=== PATIENT | male | born 1955 | race African-American/Black ===

== ENCOUNTER 2017-04-29 11:31 | Emergency (ER) | payer OTHER ==
[~2017-04-29] VITALS: Ht 188 cm; Wt 70.9 kg
[~2017-04-29 11:31] MED LIST: AMOXICILLIN 8751 TAB PO; ATENOLOL100 MG PO; ATIVAN 1MG T1 MG/TAB PO; CLINDAMYCIN HC300 MG PO; CYCLOBENZAPRINE10 MG PO; DESYREL 100MG100 MG PO; DOXYCYCLINE 10100 MG PO; DYAZIDE 25 MG-31 CAP PO; FLEXERIL10 MG PO; KAPIDEX; LISINOPRIL/HCTZ1 TA1 PO; LOPRESSOR 225 MG/TAB PO; LORTAB 5/500 501 TAB PO; NO HOME MEDICATIONS; NORCO 325 MG-51 TAB; NORCO 325 MG-51 TAB PO; PAIN PILL; PERCOCET 325 MG1 TA2 PO; PRILOSEC10 MG PO; ROXICODONE15 MG PO; TOPROL XL 25MG25 MG PO; TRAZODO50 MG PO; TUSS PO
[2017-04-29 11:40] VITALS: BP 127/87; TEMP 98
[2017-04-29] MEDS ORDERED: FLEXERIL 1010 MG/TAB PO (12:43)
[2017-04-29] MEDS ORDERED: NORCO 325 MG-51 TAB PO (12:43)
[2017-04-29 13:06] VITALS: PULSE 95
== END 2017-04-29 13:07 | disposition home or self-care (01) ==
LOC: COL.ER 11:31
DX: M54.31 Sciatica, right side (principal); M46.1 Sacroiliitis, not elsewhere classified; M62.830 Muscle spasm of back; F17.200 Nicotine dependence, unspecified, uncomplicated
CPT/HCPCS: J2360

== ENCOUNTER 2017-11-10 06:56 | Inpatient (IN) | payer OTHER ==
[2017-11-10] VITALS (9 sets, daily range): BP systolic 113–156; BP diastolic 83–114; PULSE 106–116; TEMP 97.3–98.7
[~2017-11-10] VITALS: Ht 188 cm; Wt 62.4 kg
[~2017-11-10 06:56] MED LIST changes: +FLEXERIL 1010 MG/TAB PO
[2017-11-10] MEDS ORDERED: TOPROL XL 25MG25 MG PO (07:09)
[2017-11-10 07:58] LABS: BASO % 0.6 % (0.0-2.0); EOS % 0.3 % (0-4.0); GRAN # 4.1 (1.4-6.5); GRAN % 62.2 % (42.2-75.2); HEMOGLOBIN 13.7 g/dl (13.5-18.0); LYMPH # 1.4 (1.2-3.4); LYMPH % 21.4 % (20.0-51.0); MEAN CELL VOLUME 97 fl (80.0-100.0); MEAN CORPUSCULAR HEMOGLOBIN 32 pg (27.0-31.0); MEAN CORPUSCULAR HGB CONC 33 g/dl (33.0-37.0); MEAN PLATELET VOLUME 8.9 fl (7.4-10.4); MONO % 14.9 % (1.7-9.3); PLATELET COUNT 200 K/mm3 (130-400); RED BLOOD COUNT 4.32 M/mm3 (4.20-5.60); REDCELL DISTRIBUTION WIDTH-CV 13.7 % (11.5-14.5)
[2017-11-10 08:04] LABS: INR 1.2 (0.8-3.0); PROTHROMBIN TIME 14.3 SECONDS (9.7-12.8)
[2017-11-10 08:23] LABS: ALBUMIN 3.5 gm/dL (3.5-5.0); BILIRUBIN,TOTAL 1.4 mg/dL (0.0-1.0); C-REACTIVE PROTEIN 0.7 mg/dL (0.0-0.9); CREATININE, serum 0.81 mg/dL (0.66-1.25); POTASSIUM 4.2 mmol/L (3.4-5.0); TOTAL PROTEIN 7.3 gm/dL (6.4-8.2)
[2017-11-10 08:35] LABS: TROPONIN-I 0.068 ng/mL (0.000-0.034)
[2017-11-10] MEDS ORDERED: MOTRIN 600600 MG/TAB PO (11:09)
[2017-11-10 15:04] LABS: TRICYCLIC ANTIDEPRESS URINE NEGATIVE
[2017-11-10 17:01] LABS: CHOLESTEROL RISK RATIO 3.4
[2017-11-11] VITALS (11 sets, daily range): BP systolic 95–130; BP diastolic 55–97; PULSE 62–124; TEMP 97.5–98.8
[2017-11-11 06:50] LABS: BASO # 0.1 (0.0-0.2); BASO % 0.7 % (0.0-2.0); EOS # 0.1 (0.0-0.7); GRAN % 56.2 % (42.2-75.2); HEMATOCRIT 43.2 % (42.0-52.0); HEMOGLOBIN 14.3 g/dl (13.5-18.0); LYMPH # 1.8 (1.2-3.4); LYMPH % 25.1 % (20.0-51.0); MEAN CELL VOLUME 96 fl (80.0-100.0); MEAN CORPUSCULAR HEMOGLOBIN 32 pg (27.0-31.0); MEAN CORPUSCULAR HGB CONC 33 g/dl (33.0-37.0); MEAN PLATELET VOLUME 9.3 fl (7.4-10.4); MONO # 1.1 (0.1-0.6); MONO % 15.7 % (1.7-9.3); PLATELET COUNT 215 K/mm3 (130-400); RED BLOOD COUNT 4.49 M/mm3 (4.20-5.60); REDCELL DISTRIBUTION WIDTH-CV 13.5 % (11.5-14.5)
[2017-11-11 07:09] LABS: ALBUMIN 3.1 gm/dL (3.5-5.0); CALCIUM 9.1 mg/dL (8.4-10.2); CREATININE, serum 0.92 mg/dL (0.66-1.25); POTASSIUM 3.6 mmol/L (3.4-5.0); TOTAL PROTEIN 6.7 gm/dL (6.4-8.2)
[2017-11-12] VITALS (13 sets, daily range): BP systolic 96–147; BP diastolic 61–90; PULSE 85–110; TEMP 97.7–98.8
[2017-11-12 07:02] LABS: BILIRUBIN,TOTAL 0.7 mg/dL (0.0-1.0); CALCIUM 8.9 mg/dL (8.4-10.2); CREATININE, serum 0.93 mg/dL (0.66-1.25); POTASSIUM 3.4 mmol/L (3.4-5.0); TOTAL PROTEIN 6.6 gm/dL (6.4-8.2)
[2017-11-13] VITALS (7 sets, daily range): BP systolic 109–125; BP diastolic 72–84; PULSE 82–97; TEMP 97.7–98.5
[2017-11-13] MEDS ORDERED: COREG 3.123.125 MG/T PO (10:58)
[2017-11-13] MEDS ORDERED: ASPIRIN 81M81 MG/TA2 PO (10:58)
[2017-11-13] MEDS ORDERED: ZESTRIL 5MG5 MG PO (10:58)
[2017-11-13] MEDS ORDERED: FOLIC ACID 11 MG/TA1 PO (11:01)
[2017-11-13] MEDS ORDERED: THIAMINE 1100 MG/TAB PO (11:01)
[2017-11-13] MEDS ORDERED: MULTI VITAMINS1 TAB PO (11:01)
[2017-11-13] MEDS ORDERED: LASIX 20MG TABL20 MG PO (11:22)
== END 2017-11-13 23:50 | disposition home or self-care (01) | DRG 280 ==
LOC: COL.ER 06:56 → SURG 08:16 → PEDS 11-12 09:20 → SURG 11-12 09:20
PROVIDERS: Family Medicine; Physician Assistant
DX: I11.0 Hypertensive heart disease with heart failure (principal); J96.01 Acute respiratory failure with hypoxia; I21.A1 Myocardial infarction type 2; I50.21 Acute systolic (congestive) heart failure; F17.210 Nicotine dependence, cigarettes, uncomplicated; F10.10 Alcohol abuse, uncomplicated; F11.10 Opioid abuse, uncomplicated; F15.10 Other stimulant abuse, uncomplicated; Z23 Encounter for immunization; M54.42 Lumbago with sciatica, left side; R16.0 Hepatomegaly, not elsewhere classified; F32.9 Major depressive disorder, single episode, unspecified
CPT/HCPCS: 99232-AI; 99233-AI; 99239; J1650; J1940; J2270; J2405; J3411; J7050; Q9967

== ENCOUNTER 2018-01-07 05:58 | Emergency (ER) | payer OTHER ==
[~2018-01-07] VITALS: Ht 188 cm; Wt 66.8 kg
[~2018-01-07 05:58] MED LIST changes: +ASPIRIN 81M81 MG/TA2 PO; +COREG 3.123.125 MG/T PO; +FOLIC ACID 11 MG/TA1 PO; +LASIX 20MG TABL20 MG PO; +MOTRIN 600600 MG/TAB PO; +MULTI VITAMINS1 TAB PO; +THIAMINE 1100 MG/TAB PO; +ZESTRIL 5MG5 MG PO
[2018-01-07 06:04] VITALS: TEMP 96.9
[2018-01-07 06:19] LABS: BASO # 0.1 (0.0-0.2); BASO % 0.6 % (0.0-2.0); EOS # 0.1 (0.0-0.7); EOS % 1.2 % (0-4.0); GRAN # 4.6 (1.4-6.5); GRAN % 52.7 % (42.2-75.2); HEMOGLOBIN 13.4 g/dl (13.5-18.0); LYMPH # 2.3 (1.2-3.4); LYMPH % 26.6 % (20.0-51.0); MEAN CELL VOLUME 95 fl (80.0-100.0); MEAN CORPUSCULAR HEMOGLOBIN 32 pg (27.0-31.0); MEAN CORPUSCULAR HGB CONC 34 g/dl (33.0-37.0); MEAN PLATELET VOLUME 9.1 fl (7.4-10.4); MONO # 1.6 (0.1-0.6); MONO % 18.4 % (1.7-9.3); PLATELET COUNT 190 K/mm3 (130-400); RED BLOOD COUNT 4.22 M/mm3 (4.20-5.60); REDCELL DISTRIBUTION WIDTH-CV 14.6 % (11.5-14.5)
[2018-01-07] MEDS ORDERED: PRINIVIL5 MG PO (06:21)
[2018-01-07 06:23] LABS: INR 1.4 (0.8-3.0); PROTHROMBIN TIME 16.3 SECONDS (9.7-12.8)
[2018-01-07 06:26] LABS: PARTIAL THROMBOPLASTIN TIME 38.4 SECONDS (26.0-37.0)
[2018-01-07 06:31] LABS: ALBUMIN 3.4 gm/dL (3.5-5.0); BILIRUBIN,TOTAL 1.3 mg/dL (0.0-1.0); CALCIUM 8.8 mg/dL (8.4-10.2); CREATININE, serum 0.74 mg/dL (0.66-1.25); TOTAL PROTEIN 7.3 gm/dL (6.4-8.2)
[2018-01-07 06:46] LABS: TROPONIN-I 0.053 ng/mL (0.000-0.034)
[2018-01-07] MEDS ORDERED: K-DUR 10 MEQ T10 MEQ PO (08:43)
[2018-01-07] MEDS ORDERED: LASIX 20MG TABL20 MG PO (08:43)
[2018-01-07 09:17] VITALS: BP 124/99; PULSE 99
== END 2018-01-07 09:30 | disposition home or self-care (01) ==
LOC: COL.ER 05:58
PROVIDERS: Emergency Medicine
DX: I50.9 Heart failure, unspecified (principal); R60.0 Localized edema; E87.70 Fluid overload, unspecified; R94.5 Abnormal results of liver function studies; F17.210 Nicotine dependence, cigarettes, uncomplicated; F12.90 Cannabis use, unspecified, uncomplicated
CPT/HCPCS: J1940

== ENCOUNTER 2018-01-26 11:05 | Inpatient (IN) | payer OTHER ==
[2018-01-26] VITALS (522 sets, daily range): BP systolic 121–136; BP diastolic 90–108; PULSE 106–122; TEMP 96.6–98.4; O2SAT 83–100
[~2018-01-26] VITALS: Ht 188 cm; Wt 61.9 kg
[~2018-01-26 11:05] MED LIST changes: +K-DUR 10 MEQ T10 MEQ PO; +PRINIVIL5 MG PO
[2018-01-26 11:39] LABS: BASO % 0.4 % (0.0-2.0); EOS % 0.1 % (0-4.0); GRAN # 4.9 (1.4-6.5); GRAN % 66.9 % (42.2-75.2); HEMATOCRIT 43.5 % (42.0-52.0); HEMOGLOBIN 14.2 g/dl (13.5-18.0); LYMPH # 1.2 (1.2-3.4); LYMPH % 16.8 % (20.0-51.0); MEAN CELL VOLUME 95 fl (80.0-100.0); MEAN CORPUSCULAR HEMOGLOBIN 31 pg (27.0-31.0); MEAN CORPUSCULAR HGB CONC 33 g/dl (33.0-37.0); MEAN PLATELET VOLUME 9.5 fl (7.4-10.4); MONO # 1.1 (0.1-0.6); MONO % 15.5 % (1.7-9.3); PLATELET COUNT 164 K/mm3 (130-400); RED BLOOD COUNT 4.56 M/mm3 (4.20-5.60); REDCELL DISTRIBUTION WIDTH-CV 15.1 % (11.5-14.5)
[2018-01-26 11:45] LABS: ALANINE AMINOTRANSFERASE 75 U/L (21-72); ALBUMIN 3.3 gm/dL (3.5-5.0); ALKALINE PHOSPHATASE 106 U/L (50-136); ANION GAP 11 mmol/L (7-16); AST,SGOT 86 U/L (15-37); BILIRUBIN,TOTAL 2.1 mg/dL (0.0-1.0); BLOOD UREA NITROGEN 13 mg/dL (9-20); CALCIUM 8.9 mg/dL (8.4-10.2); CARBON DIOXIDE 23 mmol/L (22-30); CHLORIDE 101 mmol/L (98-107); GLUCOSE 147 mg/dL (74-106); POTASSIUM 4.9 mmol/L (3.4-5.0); SODIUM 135 mmol/L (137-145); TOTAL PROTEIN 8.3 gm/dL (6.4-8.2)
[2018-01-26 11:51] LABS: ALCOHOL(ethanol),MEDICAL < 10 mg/dL
[2018-01-26 13:21] LABS: COLLECTION METHOD CLEAN CATCH
[2018-01-26] MEDS ORDERED: ASPIRIN 81M81 MG/TA2 PO (13:23)
[2018-01-26 13:28] LABS: PH 7 (5-8); SQUAMOUS EPITHELIAL None Seen /hpf; URINE APPEARANCE Clear; URINE BACTERIA None Seen /hpf; URINE BILIRUBIN Negative (NEGATIVE); URINE BLOOD Negative (NEGATIVE); URINE COLOR Yellow; URINE GLUCOSE Negative (NEGATIVE); URINE KETONE Negative (NEGATIVE); URINE LEUKOCYTE ESTERASE Negative (NEGATIVE); URINE NITRATE Negative (NEGATIVE); URINE PROTEIN(semi-quant) Negative (NEGATIVE); URINE RBC None Seen /hpf
[2018-01-26 13:49] LABS: TRICYCLIC ANTIDEPRESS URINE NEGATIVE
[2018-01-26 13:59] LABS: MAGNESIUM 1.4 mg/dL (1.6-2.3); PHOSPHOROUS 4.5 mg/dL (2.5-4.5)
[2018-01-26 14:13] LABS: TROPONIN-I 0.061 ng/mL (0.000-0.034)
[2018-01-27] VITALS (463 sets, daily range): BP systolic 84–126; BP diastolic 46–102; PULSE 89–108; TEMP 97.3–98.8; O2SAT 44–100
[2018-01-27 06:07] LABS: BASO % 0.7 % (0.0-2.0); EOS # 0.1 (0.0-0.7); EOS % 1.4 % (0-4.0); GRAN # 2.9 (1.4-6.5); GRAN % 49.1 % (42.2-75.2); HEMATOCRIT 44.6 % (42.0-52.0); HEMOGLOBIN 14.9 g/dl (13.5-18.0); LYMPH # 1.9 (1.2-3.4); LYMPH % 32.2 % (20.0-51.0); MEAN CELL VOLUME 92 fl (80.0-100.0); MEAN CORPUSCULAR HEMOGLOBIN 31 pg (27.0-31.0); MEAN CORPUSCULAR HGB CONC 33 g/dl (33.0-37.0); MEAN PLATELET VOLUME 9.6 fl (7.4-10.4); MONO % 16.4 % (1.7-9.3); PLATELET COUNT 183 K/mm3 (130-400); RED BLOOD COUNT 4.85 M/mm3 (4.20-5.60); REDCELL DISTRIBUTION WIDTH-CV 14.8 % (11.5-14.5)
[2018-01-27 06:40] LABS: ALBUMIN 2.7 gm/dL (3.5-5.0); BILIRUBIN,TOTAL 2.3 mg/dL (0.0-1.0); CALCIUM 8.6 mg/dL (8.4-10.2); CREATININE, serum 0.88 mg/dL (0.66-1.25); MAGNESIUM 1.6 mg/dL (1.6-2.3)
[2018-01-27 06:54] LABS: TROPONIN-I 0.054 ng/mL (0.000-0.034)
[2018-01-28] VITALS (14 sets, daily range): BP systolic 73–111; BP diastolic 42–82; PULSE 80–92; TEMP 97–98.7
[2018-01-28 06:54] LABS: BASO % 0.5 % (0.0-2.0); EOS # 0.1 (0.0-0.7); EOS % 1.7 % (0-4.0); GRAN # 3.1 (1.4-6.5); GRAN % 47.8 % (42.2-75.2); HEMOGLOBIN 14.5 g/dl (13.5-18.0); LYMPH % 31.8 % (20.0-51.0); MEAN CELL VOLUME 93 fl (80.0-100.0); MEAN CORPUSCULAR HEMOGLOBIN 31 pg (27.0-31.0); MEAN CORPUSCULAR HGB CONC 33 g/dl (33.0-37.0); MEAN PLATELET VOLUME 9.2 fl (7.4-10.4); MONO # 1.2 (0.1-0.6); MONO % 17.9 % (1.7-9.3); PLATELET COUNT 185 K/mm3 (130-400); RED BLOOD COUNT 4.75 M/mm3 (4.20-5.60); REDCELL DISTRIBUTION WIDTH-CV 14.8 % (11.5-14.5)
[2018-01-28 07:11] LABS: CALCIUM 8.2 mg/dL (8.4-10.2); CREATININE, serum 0.99 mg/dL (0.66-1.25); MAGNESIUM 1.7 mg/dL (1.6-2.3); POTASSIUM 4.1 mmol/L (3.4-5.0)
[2018-01-29 02:08] VITALS: BP 102/69; PULSE 83; TEMP 97.3
[2018-01-29 03:42] VITALS: BP 99/69; PULSE 81; TEMP 97.6
[2018-01-29 06:07] VITALS: BP 95/68; PULSE 85; TEMP 97.4
[2018-01-29 06:24] LABS: ALBUMIN 2.8 gm/dL (3.5-5.0); BILIRUBIN,TOTAL 0.7 mg/dL (0.0-1.0); CALCIUM 8.5 mg/dL (8.4-10.2); CREATININE, serum 0.99 mg/dL (0.66-1.25); MAGNESIUM 1.5 mg/dL (1.6-2.3); POTASSIUM 4.1 mmol/L (3.4-5.0); TOTAL PROTEIN 7.1 gm/dL (6.4-8.2)
[2018-01-29 07:40] VITALS: BP 102/66; PULSE 92; TEMP 98.3
[2018-01-29] MEDS ORDERED: PRINIVIL5 MG PO (08:49)
[2018-01-29] MEDS ORDERED: COREG 3.123.125 MG/T PO (08:49)
[2018-01-29] MEDS ORDERED: CORDARONE200 MG/TAB PO (08:49)
[2018-01-29 09:36] VITALS: BP 95/57; PULSE 81; TEMP 98.3
[2018-01-29] MEDS ORDERED: MAG-OX 400400 MG/TAB PO (10:03)
[2018-01-29] MEDS ORDERED: LASIX 40MG TABL40 MG PO (10:03)
[2018-01-29] MEDS ORDERED: K-TAB10 PO (10:04)
[2018-01-29 11:36] VITALS: BP 101/70; PULSE 78; TEMP 98.3
== END 2018-01-29 15:45 | disposition home or self-care (01) | DRG 281 ==
LOC: COL.ER 11:05 → MEDICAL 12:35 → ICU 12:35 → MEDICAL 01-27 15:40
PROVIDERS: Emergency Medicine; Family Medicine; Nurse Practitioner Family
DX: I11.0 Hypertensive heart disease with heart failure (principal); I21.A1 Myocardial infarction type 2; I47.1 Supraventricular tachycardia; I50.20 Unspecified systolic (congestive) heart failure; E83.42 Hypomagnesemia; F17.210 Nicotine dependence, cigarettes, uncomplicated; F32.9 Major depressive disorder, single episode, unspecified; M54.41 Lumbago with sciatica, right side; R53.81 Other malaise; F10.21 Alcohol dependence, in remission; R16.0 Hepatomegaly, not elsewhere classified; Z91.14 Patient's other noncompliance with medication regimen
CPT/HCPCS: 99223-AI; 99232-AI; 99233-AI; 99239; J1650; J1940; J2060; J3475; J7040

== ENCOUNTER 2018-05-18 10:11 | Inpatient (IN) | payer OTHER ==
[~2018-05-18] VITALS: Ht 188 cm; Wt 72.3 kg
[2018-05-18] VITALS (21 sets, daily range): BP systolic 110–121; BP diastolic 58–95; PULSE 81–96; TEMP 97.5–98; O2SAT 91–100
[2018-05-18 11:20] LABS: BASO % 0.3 % (0.0-2.0); EOS % 0.1 % (0-4.0); GRAN # 4.7 (1.4-6.5); GRAN % 66.4 % (42.2-75.2); HEMATOCRIT 45.5 % (42.0-52.0); HEMOGLOBIN 14.6 g/dl (13.5-18.0); LYMPH # 1.5 (1.2-3.4); LYMPH % 20.9 % (20.0-51.0); MEAN CELL VOLUME 101 fl (80.0-100.0); MEAN CORPUSCULAR HEMOGLOBIN 32 pg (27.0-31.0); MEAN CORPUSCULAR HGB CONC 32 g/dl (33.0-37.0); MEAN PLATELET VOLUME 9.2 fl (7.4-10.4); MONO # 0.8 (0.1-0.6); MONO % 11.9 % (1.7-9.3); PLATELET COUNT 174 K/mm3 (130-400); REDCELL DISTRIBUTION WIDTH-CV 15.5 % (11.5-14.5)
[2018-05-18 11:29] LABS: PARTIAL THROMBOPLASTIN TIME 34.3 SECONDS (26.0-37.0)
[2018-05-18 11:31] LABS: ALBUMIN 3.6 gm/dL (3.5-5.0); BILIRUBIN,TOTAL 2.6 mg/dL (0.0-1.0); CALCIUM 8.5 mg/dL (8.4-10.2); CREATININE, serum 0.93 mg/dL (0.66-1.25); POTASSIUM 3.9 mmol/L (3.4-5.0); TOTAL PROTEIN 8.1 gm/dL (6.4-8.2)
[2018-05-18 11:46] LABS: TROPONIN-I 0.051 ng/mL (0.000-0.034)
[2018-05-18 11:49] LABS: INR 1.5 (0.8-3.0); PROTHROMBIN TIME 16.5 SECONDS (9.7-12.8)
[2018-05-19] VITALS (8 sets, daily range): BP systolic 96–120; BP diastolic 68–92; PULSE 80–89; TEMP 97.5–97.8
[2018-05-19 03:45] LABS: TRICYCLIC ANTIDEPRESS URINE NEGATIVE
[2018-05-19 06:01] LABS: BASO % 0.4 % (0.0-2.0); EOS # 0.1 (0.0-0.7); EOS % 0.8 % (0-4.0); GRAN # 4.7 (1.4-6.5); GRAN % 60.7 % (42.2-75.2); HEMATOCRIT 46.6 % (42.0-52.0); HEMOGLOBIN 14.9 g/dl (13.5-18.0); LYMPH % 26.3 % (20.0-51.0); MEAN CELL VOLUME 101 fl (80.0-100.0); MEAN CORPUSCULAR HEMOGLOBIN 32 pg (27.0-31.0); MEAN CORPUSCULAR HGB CONC 32 g/dl (33.0-37.0); MEAN PLATELET VOLUME 9.3 fl (7.4-10.4); MONO # 0.9 (0.1-0.6); MONO % 11.3 % (1.7-9.3); PLATELET COUNT 157 K/mm3 (130-400); RED BLOOD COUNT 4.62 M/mm3 (4.20-5.60); REDCELL DISTRIBUTION WIDTH-CV 15.5 % (11.5-14.5)
[2018-05-19 06:11] LABS: ALBUMIN 3.4 gm/dL (3.5-5.0); BILIRUBIN,TOTAL 2.9 mg/dL (0.0-1.0); CALCIUM 8.6 mg/dL (8.4-10.2); CREATININE, serum 1.18 mg/dL (0.66-1.25); MAGNESIUM 1.7 mg/dL (1.6-2.3); POTASSIUM 4.4 mmol/L (3.4-5.0); TOTAL PROTEIN 7.9 gm/dL (6.4-8.2)
[2018-05-19 06:25] LABS: TROPONIN-I 0.051 ng/mL (0.000-0.034)
[2018-05-20 04:22] VITALS: BP 105/80; PULSE 83; TEMP 97.6
[2018-05-20 07:39] VITALS: BP 110/79; PULSE 78; TEMP 98
[2018-05-20 08:35] LABS: CALCIUM 8.3 mg/dL (8.4-10.2); CREATININE, serum 0.92 mg/dL (0.66-1.25); POTASSIUM 3.9 mmol/L (3.4-5.0)
[2018-05-20 11:08] VITALS: BP 97/68; PULSE 76; TEMP 98.3
[2018-05-20 15:54] VITALS: BP 99/71; PULSE 75; TEMP 98.3
[2018-05-20 20:20] VITALS: BP 103/84; PULSE 73; TEMP 97.4
[2018-05-21 00:05] VITALS: BP 107/85; PULSE 81; TEMP 97.6
[2018-05-21 04:22] VITALS: BP 117/89; PULSE 84; TEMP 98
[2018-05-21 06:56] VITALS: BP 108/85; PULSE 82; TEMP 98.2
[2018-05-21 07:33] LABS: BASO % 0.3 % (0.0-2.0); EOS % 0.4 % (0-4.0); GRAN # 4.7 (1.4-6.5); GRAN % 62.9 % (42.2-75.2); HEMATOCRIT 44.7 % (42.0-52.0); HEMOGLOBIN 14.3 g/dl (13.5-18.0); LYMPH # 1.7 (1.2-3.4); LYMPH % 23.4 % (20.0-51.0); MEAN CELL VOLUME 99 fl (80.0-100.0); MEAN CORPUSCULAR HEMOGLOBIN 32 pg (27.0-31.0); MEAN CORPUSCULAR HGB CONC 32 g/dl (33.0-37.0); MEAN PLATELET VOLUME 9.8 fl (7.4-10.4); MONO # 0.9 (0.1-0.6); MONO % 12.6 % (1.7-9.3); PLATELET COUNT 166 K/mm3 (130-400); REDCELL DISTRIBUTION WIDTH-CV 15.1 % (11.5-14.5)
[2018-05-21 07:50] LABS: ALBUMIN 3.1 gm/dL (3.5-5.0); BILIRUBIN,TOTAL 2.2 mg/dL (0.0-1.0); CALCIUM 8.2 mg/dL (8.4-10.2); CREATININE, serum 0.99 mg/dL (0.66-1.25); POTASSIUM 4.1 mmol/L (3.4-5.0); TOTAL PROTEIN 7.2 gm/dL (6.4-8.2)
[2018-05-21 11:45] VITALS: BP 103/73; PULSE 78; TEMP 97.6
[2018-05-21 15:39] VITALS: BP 114/83; PULSE 73; TEMP 98.8
[2018-05-21 20:32] VITALS: BP 103/82; PULSE 70; TEMP 98.3
[2018-05-22] VITALS (19 sets, daily range): BP systolic 98–120; BP diastolic 47–92; PULSE 64–82; TEMP 97.4–98.1
[2018-05-22 07:50] LABS: BASO % 0.4 % (0.0-2.0); EOS # 0.1 (0.0-0.7); EOS % 0.9 % (0-4.0); GRAN # 3.8 (1.4-6.5); HEMATOCRIT 45.4 % (42.0-52.0); HEMOGLOBIN 14.8 g/dl (13.5-18.0); INR 1.3 (0.8-3.0); LYMPH # 1.9 (1.2-3.4); MEAN CELL VOLUME 99 fl (80.0-100.0); MEAN CORPUSCULAR HEMOGLOBIN 32 pg (27.0-31.0); MEAN CORPUSCULAR HGB CONC 33 g/dl (33.0-37.0); MEAN PLATELET VOLUME 9.9 fl (7.4-10.4); MONO # 0.9 (0.1-0.6); MONO % 13.3 % (1.7-9.3); PLATELET COUNT 165 K/mm3 (130-400); PROTHROMBIN TIME 14.2 SECONDS (9.7-12.8); RED BLOOD COUNT 4.61 M/mm3 (4.20-5.60); REDCELL DISTRIBUTION WIDTH-CV 15.3 % (11.5-14.5)
[2018-05-22 07:53] LABS: ALBUMIN 3.3 gm/dL (3.5-5.0); BILIRUBIN,TOTAL 1.6 mg/dL (0.0-1.0); CALCIUM 8.6 mg/dL (8.4-10.2); CREATININE, serum 1.08 mg/dL (0.66-1.25); PARTIAL THROMBOPLASTIN TIME 39.6 SECONDS (26.0-37.0); TOTAL PROTEIN 7.8 gm/dL (6.4-8.2)
[2018-05-23] VITALS (7 sets, daily range): BP systolic 104–112; BP diastolic 58–82; PULSE 68–100; TEMP 97.9–98.6
[2018-05-23 07:10] LABS: BASO % 0.3 % (0.0-2.0); EOS # 0.1 (0.0-0.7); GRAN # 3.5 (1.4-6.5); GRAN % 60.2 % (42.2-75.2); HEMATOCRIT 41.3 % (42.0-52.0); HEMOGLOBIN 13.2 g/dl (13.5-18.0); LYMPH # 1.4 (1.2-3.4); LYMPH % 24.1 % (20.0-51.0); MEAN CELL VOLUME 100 fl (80.0-100.0); MEAN CORPUSCULAR HEMOGLOBIN 32 pg (27.0-31.0); MEAN CORPUSCULAR HGB CONC 32 g/dl (33.0-37.0); MONO # 0.8 (0.1-0.6); MONO % 13.9 % (1.7-9.3); PLATELET COUNT 150 K/mm3 (130-400); RED BLOOD COUNT 4.15 M/mm3 (4.20-5.60); REDCELL DISTRIBUTION WIDTH-CV 15.3 % (11.5-14.5)
[2018-05-23 07:17] LABS: ALBUMIN 2.6 gm/dL (3.5-5.0); BILIRUBIN,TOTAL 1.3 mg/dL (0.0-1.0); CREATININE, serum 0.92 mg/dL (0.66-1.25); POTASSIUM 3.9 mmol/L (3.4-5.0); TOTAL PROTEIN 6.4 gm/dL (6.4-8.2)
[2018-05-24 00:21] VITALS: BP 107/78; PULSE 73; TEMP 97.6
[2018-05-24 08:39] VITALS: BP 106/74; PULSE 78; TEMP 98.4
[2018-05-24 10:13] LABS: HEMATOCRIT 40.1 % (42.0-52.0); HEMOGLOBIN 13.1 g/dl (13.5-18.0); MEAN CELL VOLUME 100 fl (80.0-100.0); MEAN CORPUSCULAR HEMOGLOBIN 33 pg (27.0-31.0); MEAN CORPUSCULAR HGB CONC 33 g/dl (33.0-37.0); MEAN PLATELET VOLUME 10.1 fl (7.4-10.4); PLATELET COUNT 137 K/mm3 (130-400); RED BLOOD COUNT 4.01 M/mm3 (4.20-5.60); REDCELL DISTRIBUTION WIDTH-CV 15.1 % (11.5-14.5)
[2018-05-24 10:18] LABS: CALCIUM 7.9 mg/dL (8.4-10.2); CREATININE, serum 0.89 mg/dL (0.66-1.25); POTASSIUM 3.9 mmol/L (3.4-5.0)
[2018-05-24 12:24] VITALS: BP 104/70; PULSE 74; TEMP 98.3
[2018-05-24 15:50] VITALS: BP 107/85; PULSE 58; TEMP 98.2
[2018-05-24 20:07] VITALS: BP 123/87; TEMP 97.6
[2018-05-24 23:28] VITALS: BP 112/89; PULSE 52; TEMP 97.6
[2018-05-25] VITALS (61 sets, daily range): BP systolic 93–170; BP diastolic 64–94; PULSE 61–75; TEMP 97.6; O2SAT 92–100
[2018-05-25 07:29] LABS: BASO % 0.4 % (0.0-2.0); EOS % 0.3 % (0-4.0); GRAN # 3.9 (1.4-6.5); HEMATOCRIT 43.6 % (42.0-52.0); HEMOGLOBIN 14.4 g/dl (13.5-18.0); LYMPH # 1.6 (1.2-3.4); LYMPH % 24.4 % (20.0-51.0); MEAN CELL VOLUME 98 fl (80.0-100.0); MEAN CORPUSCULAR HEMOGLOBIN 32 pg (27.0-31.0); MEAN CORPUSCULAR HGB CONC 33 g/dl (33.0-37.0); MEAN PLATELET VOLUME 10.1 fl (7.4-10.4); MONO % 15.5 % (1.7-9.3); PLATELET COUNT 146 K/mm3 (130-400); RED BLOOD COUNT 4.46 M/mm3 (4.20-5.60)
[2018-05-25 07:43] LABS: CALCIUM 7.8 mg/dL (8.4-10.2); CREATININE, serum 0.91 mg/dL (0.66-1.25); POTASSIUM 5.2 mmol/L (3.4-5.0)
[2018-05-25 11:26] LABS: ARTERIAL BLD GAS O2 SATURATION 99.3 % (92-100); ARTERIAL BLD GAS TCO2 CT 29.8; ARTERIAL BLOOD GAS BASE EXCESS 7.5 (-2-2); ARTERIAL BLOOD GAS HCO3 28.8 meq/L (22-26); ARTERIAL BLOOD GAS PCO2 30.8 mmHg (35-45); ARTERIAL BLOOD GAS pH 7.59 (7.35-7.45)
[2018-05-25 11:28] LABS: ARTERIAL BLOOD GAS PO2 207.9 mmHg (80-100)
[2018-05-25 13:47] LABS: ALANINE AMINOTRANSFERASE 65 U/L (21-72); ALKALINE PHOSPHATASE 83 U/L (50-136); ANION GAP 14 mmol/L (7-16); AST,SGOT 102 U/L (15-37); BLOOD UREA NITROGEN 29 mg/dL (9-20); CALCIUM 8.7 mg/dL (8.4-10.2); CARBON DIOXIDE 27 mmol/L (22-30); CHLORIDE 96 mmol/L (98-107); CREATININE, serum 1.05 mg/dL (0.66-1.25); GLUCOSE 104 mg/dL (74-106); SODIUM 137 mmol/L (137-145); TOTAL PROTEIN 7.3 gm/dL (6.4-8.2)
[2018-05-25 13:49] LABS: POTASSIUM 5.8 mmol/L (3.4-5.0)
== END 2018-05-25 15:15 | disposition short-term general hospital (02) | DRG 222 ==
LOC: COL.ER 10:11 → ICU 12:10 → MEDICAL 12:10 → ICU 12:11 → MEDICAL 05-19 10:17 → ICU 05-25 10:41
PROVIDERS: Emergency Medicine; Hospitalist; Internal Medicine Cardiovascular Disease; Internal Medicine Critical Care Medicine; Nurse Practitioner Family; Physician Assistant
PROC: B2111ZZ Fluoroscopy of Multiple Coronary Arteries using Low Osmolar Contrast (ICD-10-PCS; 2018-05-22)
PROC: B2151ZZ Fluoroscopy of Left Heart using Low Osmolar Contrast (ICD-10-PCS; 2018-05-22)
PROC: 4A023N7 Measurement of Cardiac Sampling and Pressure, Left Heart, Percutaneous Approach (ICD-10-PCS; 2018-05-22)
PROC: 02HK3KZ Insertion of Defibrillator Lead into Right Ventricle, Percutaneous Approach (ICD-10-PCS; principal; 2018-05-25)
PROC: 0JH608Z Insertion of Defibrillator Generator into Chest Subcutaneous Tissue and Fascia, Open Approach (ICD-10-PCS; 2018-05-25)
PROC: 5A02210 Assistance with Cardiac Output using Balloon Pump, Continuous (ICD-10-PCS; 2018-05-25)
PROC: 0BH17EZ Insertion of Endotracheal Airway into Trachea, Via Natural or Artificial Opening (ICD-10-PCS; 2018-05-25)
PROC: 5A1935Z Respiratory Ventilation, Less than 24 Consecutive Hours (ICD-10-PCS; 2018-05-25)
DX: I11.0 Hypertensive heart disease with heart failure (principal); J96.01 Acute respiratory failure with hypoxia; I21.4 Non-ST elevation (NSTEMI) myocardial infarction; R57.0 Cardiogenic shock; I50.23 Acute on chronic systolic (congestive) heart failure; Z91.11 Patient's noncompliance with dietary regimen; Z91.14 Patient's other noncompliance with medication regimen; I42.0 Dilated cardiomyopathy; F10.10 Alcohol abuse, uncomplicated; F15.10 Other stimulant abuse, uncomplicated; F14.10 Cocaine abuse, uncomplicated; F17.210 Nicotine dependence, cigarettes, uncomplicated
CPT/HCPCS: 99222-AI; 99232-AI; 99233-AI; C1894; J0690; J1200; J1644; J1650; J1940; J2060; J2250; J2405; J3010; J7030; Q9967

== ENCOUNTER → 2018-05-18 | Outpatient (CLI) | payer OTHER ==
[~2018-05-18] MED LIST changes: +CORDARONE200 MG/TAB PO; +K-TAB10 PO; +LASIX 40MG TABL40 MG PO; +MAG-OX 400400 MG/TAB PO
== END ==
LOC: COL.RAD 09:36
DX: Z02.71 Encounter for disability determination (principal); M47.896 Other spondylosis, lumbar region; M48.07 Spinal stenosis, lumbosacral region